=== PATIENT | male | born 1990 | race Caucasian/White ===

== ENCOUNTER 2016-09-10 06:53 | Day surgery (SDC) | payer OTHER ==
[~2016-09-10] VITALS: Ht 188 cm; Wt 127.0 kg
[2016-09-10] MEDS ORDERED: AMPH10CE PO (07:38)
[2016-09-10] MEDS ORDERED: BUPIVACAINE-MPF/EPI 0.25% 30 ML VIAL INJ ONE ×2 (08:58→09:40)
[2016-09-10] MEDS ORDERED: PROPOFOL 200 MG/20 ML VIAL IV ONE (09:01)
[2016-09-10] MEDS ORDERED: fentaNYL 0.05 MG/ML VIAL ONE (09:04)
[2016-09-10] MEDS ORDERED: MIDAZOLAM 2 MG/2 ML VIAL ONE (09:04)
[2016-09-10] MEDS ORDERED: KETAMINE 500 MG/5 ML VIAL ONE (09:27)
[2016-09-10] MEDS ORDERED: KETOROLAC 30 MG/ML VIAL IVP PRN (10:00)
[2016-09-10] MEDS ORDERED: HYDROcodone/APAP 5/325 MG 1 TAB TAB PO PRN (10:40)
[2016-09-10] MEDS ORDERED: MORPHINE SULFATE 2 MG/ML SYR IVP PRN (10:40)
[2016-09-10] MEDS ORDERED: HYDROmorphone 1 MG/ML AMP IVP PRN (10:40)
[2016-09-10] MEDS ORDERED: ONDANSETRON 4 MG/2 ML VIAL IV PRN (10:40)
[2016-09-10] MEDS ORDERED: MORPHINE SULFATE 4 MG/ML SYR IV PRN (10:40)
== END 2016-09-10 12:02 | disposition home or self-care (01) ==
LOC: MDS 06:53 → MMU 06:54 → MDS 12:02
PROVIDERS: ATTEND Surgery
DX: D23.5 Other benign neoplasm of skin of trunk (principal); D23.62 Other benign neoplasm of skin of left upper limb, including shoulder; D23.71 Other benign neoplasm of skin of right lower limb, including hip; L85.9 Epidermal thickening, unspecified; J45.909 Unspecified asthma, uncomplicated; K21.9 Gastro-esophageal reflux disease without esophagitis; R56.9 Unspecified convulsions; M19.90 Unspecified osteoarthritis, unspecified site; Z98.890 Other specified postprocedural states; F17.210 Nicotine dependence, cigarettes, uncomplicated
CPT/HCPCS: 11401; 11402; 71010; 88305; 88342; J0690; J2250; J2704; J3490; J7060; J7120; J3010